=== PATIENT | male | born 1965 | race Caucasian/White ===

== ENCOUNTER 2024-02-13 08:32 | Emergency (ER) | payer OTHER, SELFPAY ==
[2024-02-13 08:36] VITALS: BP 176/78; PULSE 93; RESP 19; TEMP 37.1; O2SAT 99
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
[2024-02-13 09:55] LABS: Abs Immature Grans 0.01 10^3/uL (0.0-0.06); Absolute Basophil Count 0.04 10^3/uL (0.0-0.2); Absolute Eosinophil Count 0.01 10^3/uL (0.0-0.7); Absolute Lymphocyte Count 0.88 10^3/uL (1.2-3.4); Absolute Monocyte Count 0.54 10^3/uL (0.1-0.8); Absolute Neutrophil Count 5.24 10^3/uL (1.2-6.7); Basophils % 0.6; Eosinophils % 0.1; HCT 43.9 % (40.0-50.0); HGB 15.4 g/dL (13.5-17.5); Immature Grans % 0.1; Lymphocytes % 13.1; MCH 30.9 pg (27.0-33.0); MCHC 35.1 % (32.0-36.0); MCV 88 fL (80-95); Neutrophils % 78.1; Platelet Count 219 10^3/uL (130-400); RBC 4.99 10^6/uL (4.36-5.78); RDW 12.6 % (11.8-14.1); WBC 6.72 10^3/uL (4.4-10.8)
[2024-02-13 10:36] LABS: ALT 53 U/L (16-63); AST 33 U/L (15-37); Albumin 4.1 g/dL (3.4-5.0); Alkaline Phosphatase 61 U/L (46-116); BUN 22 mg/dL (7-18); Bilirubin, Total 0.9 mg/dL (0.2-1.0); CREATININE 1.3 mg/dL (0.70-1.30); Calcium 9.3 mg/dL (8.5-10.1); Chloride 105 mmol/L (98-107); Estimated GFR 64.47 (mL/min/1.73m2); Glucose 120 mg/dL (74-106); Potassium 3.5 mmol/L (3.5-5.1); Sodium 143 mmol/L (136-145); TSH (W/Ref FT4) 1.92 uIU/mL (0.36-3.74); Total Protein 7.1 g/dL (6.4-8.2)
[2024-02-13 10:58] LABS: Salicylate < 2.8 mg/dL (<2.8)
[2024-02-13 11:00] LABS: Acetaminophen < 2 ug/mL (10-30)
[2024-02-13 11:04] LABS: *AMPHETAMINES SCREEN URINE Negative (Negative); *BARBITURATES SCREEN URINE Negative (Negative); *BENZODIAZEPINES SCREEN URINE Negative (Negative); Cannabinoids THC Negative (Negative); Cocaine Screen,Urine Negative (Negative); METHADONE URINE SCREEN Negative (Negative); OPIATES URINE SCREEN Negative (Negative)
[2024-02-13 11:06] LABS: Tricyclic Antidepressants Negative (Negative)
--- NOTE | 2024-02-13 13:23 | CMSP_ITS ---
Care Management Safety Plan Status Status: Voluntary Reason for Wait Reason for Wait: Inpatient Admission Safety Plan Safety Plan: VOLUNTARY FOR INPATIENT PSYCHIATRIC STABILIZATION.? Patient is appropriate in all interactions since arriving at [facility]; Pt has demonstrated appropriate coping and communication skills, has articulated his or her needs and concerns and is fully engaged during staff interactions. Safety plan has been established with patient, and care team, to adhere to patient goals, identify restrictions based on behavioral status, address nutrition, and determine allowed personal belongings, tools for hygiene and personal care. Determine level of activity including ambulation, level of supervision, visitors, and determine privileges based on behaviors and level of engagement by pt. SAFETY PLAN: 1. Will remain on suicide precautions, in paper clothes 2. Will remain in Zone B under direct supervision of one-on-one staff at all times provided by [employer]; NATALIA, [employer] EXCHANGE ADMINISTRATOR real estate administrator. 3. May have paper cups, plates, finger foods as well as a cardboard spoon with which to eat meals. 4. Follow [facility] Management of the Admitted Behavioral Health Patient policy. 5. Shower available in Zone B without restriction. 6. Personal belongings-soft items permitted at RN discretion. 7. Visitors-none at this time. 8. Activities: soft cart items approved per RN discretion. 9.? Bathroom available in Zone B without restriction. 10. Phone: limited to [facility] cordless phone at RN discretion. Due to VOLUNTARY status, if patient wishes to leave [facility], staff will contact [facility] Crisis Screener ([phone]) and Accountant Machine Processing ([phone]) as soon as possible. In the event of elopement, notify [facility] Police ([phone]). Patient is currently voluntarily at [facility] and seeking inpatient admission when a bed becomes available. [facility] Frontline Community Service Aide will continue seeking placement. Please contact the Accountant Machine Processing ([phone]) and [facility] Community Service Aide ([phone]) for any needed changes in the Safety Plan. Safety plan has been provided to interdepartmental care team.
--- NOTE | 2024-02-13 13:23 | PDOC.CMSAFE ---
Care Management Safety Plan Status Status: Voluntary Reason for Wait Reason for Wait: Inpatient Admission Safety Plan Safety Plan: VOLUNTARY FOR INPATIENT PSYCHIATRIC STABILIZATION.? Patient is appropriate in all interactions since arriving at [facility]; Pt has demonstrated appropriate coping and communication skills, has articulated his or her needs and concerns and is fully engaged during staff interactions. Safety plan has been established with patient, and care team, to adhere to patient goals, identify restrictions based on behavioral status, address nutrition, and determine allowed personal belongings, tools for hygiene and personal care. Determine level of activity including ambulation, level of supervision, visitors, and determine privileges based on behaviors and level of engagement by pt. SAFETY PLAN: 1. Will remain on suicide precautions, in paper clothes 2. Will remain in Zone B under direct supervision of one-on-one staff at all times provided by [employer]; NATALIA, SHIPPING SUPPORT CLERK bessemer converter operator. 3. May have paper cups, plates, finger foods as well as a cardboard spoon with which to eat meals. 4. Follow [facility] Management of the Admitted Behavioral Health Patient policy. 5. Shower available in Zone B without restriction. 6. Personal belongings-soft items permitted at RN discretion. 7. Visitors-none at this time. 8. Activities: soft cart items approved per RN discretion. 9.? Bathroom available in Zone B without restriction. 10. Phone: limited to [facility] cordless phone at RN discretion. Due to VOLUNTARY status, if patient wishes to leave [facility], staff will contact [facility] Crisis Screener ([phone]) and Air Bag Stripper ([phone]) as soon as possible. In the event of elopement, notify [facility] Police ([phone]). Patient is currently voluntarily at [facility] and seeking inpatient admission when a bed becomes available. [facility] Frontline Grief Counselor will continue seeking placement. Please contact the Air Bag Stripper ([phone]) and [facility] Grief Counselor ([phone]) for any needed changes in the Safety Plan. Safety plan has been provided to interdepartmental care team.
--- NOTE | 2024-02-13 16:27 | ED.PROG_ITS ---
Date of service: 02/13/24 Time of Service: 16:27 Medical Decision Making Patient seeking voluntary placement for depression and SI, has been calm and cooperative since being here and has no new acute complaints. Continue to monitor until safe disposition found Quality:SDOH Health Related Social Needs: No Data to Display Sign Out Sign Out Data: Sign Out Comment: Patient here voluntarily seeking treatment for severe depression and suicidality. Plan for inpatient psychiatric treatment. Patient has been seen by mental health dairy farmworker. Attempting to identify inpatient treatment facility with capacity. Last updated by Gonzalez Toscano MD at 02/13/24 15:18 Discharge Plan Discharge Details Chief Complaint: PsychEval Primary Care Provider: Unknown,Unknown ED Provider: Adan Rivas Home Meds and New Rx's Prescriptions: No Action amlodipine [Norvasc] 10 mg tablet 10 mg PO DAILY lamotrigine [Lamictal] 25 mg tablet 25 mg PO BID lorazepam 0.5 mg tablet 0.5 mg PO QHS Rx Instructions: Can take 1-2 tabs at HS as needed for sleep enalapril maleate 10 mg tablet 10 mg PO DAILY
--- NOTE | 2024-02-14 06:19 | ED.PROG_ITS ---
Date of service: 02/14/24 Time of Service: 06:19 Medical Decision Making 58-year-old gentleman with history of depression. Pending voluntary inpatient psychiatric placement. Has slept comfortably overnight, now eating breakfast and watching the snow. No issues. Quality:[facility] Health Related Social Needs: No Data to Display Sign Out Sign Out Data: Sign Out Comment: Patient here voluntarily seeking treatment for severe depression and suicidality. Plan for inpatient psychiatric treatment. Patient has been seen by mental health sheetmetal worker. Attempting to identify inpatient treatment facility with capacity. Last updated by Gonzalez Toscano MD at 02/13/24 15:18 Sign Out Comment: Patient seeking voluntary placement for depression and SI, no issues during shift. Started lamotrigine yesterday determined did not continue it here by Dr. Toscano Last updated by Adan Rivas MD at 02/13/24 16:30 Discharge Plan Discharge Details Chief Complaint: PsychEval Primary Care Provider: Unknown,Unknown ED Provider: Lyndon Lopez Home Meds and New Rx's Prescriptions: No Action amlodipine [Norvasc] 10 mg tablet 10 mg PO DAILY lamotrigine [Lamictal] 25 mg tablet 25 mg PO BID lorazepam 0.5 mg tablet 0.5 mg PO QHS Rx Instructions: Can take 1-2 tabs at HS as needed for sleep enalapril maleate 10 mg tablet 10 mg PO DAILY
[2024-02-14] MEDS: Enalapril 5 MG TAB 10 MG PO (08:26)
[2024-02-14] MEDS: amLODIPine 10 MG TAB PO (08:26)
[2024-02-14 08:28] VITALS: BP 118/57; PULSE 96; RESP 16; TEMP 36.9; O2SAT 99
--- NOTE | 2024-02-14 09:57 | ED.PROG_ITS ---
Date of service: 02/14/24 Time of Service: 09:57 Medical Decision Making Care signed out by [facility] Sel[facility], discussed ED presentation and course. She will accept the patient in transfer. Will attempt to arrange transportation although weather may potentially delay transfer. Quality:[facility] Health Related Social Needs: No Data to Display Sign Out Sign Out Data: Sign Out Comment: Patient here voluntarily seeking treatment for severe depression and suicidality. Plan for inpatient psychiatric treatment. Patient has been seen by mental health dairy feed worker. Attempting to identify inpatient treatment facility with capacity. Last updated by Gonzalez Toscano MD at 02/13/24 15:18 Sign Out Comment: Patient seeking voluntary placement for depression and SI, no issues during shift. Started lamotrigine yesterday determined did not continue it here by Dr. Toscano Last updated by Adan Rivas MD at 02/13/24 16:30 Sign Out Comment: pending Voluntary placement for depression, SI no issues overnight. Last updated by Lyndon Lopez MD at 02/14/24 06:21 Discharge Plan Disposition Patient Disposition: Psychiatric Hospital/Unit Specific Psychiatric Facility: [facility] Condition: Serious Discharge Details Clinical Impression: Suicidal ideation, Depression Primary Care Provider: Unknown,Unknown ED Provider: Gonzalez Toscano Home Meds and New Rx's Prescriptions: No Action amlodipine [Norvasc] 10 mg tablet 10 mg PO DAILY lamotrigine [Lamictal] 25 mg tablet 25 mg PO BID lorazepam 0.5 mg tablet 0.5 mg PO QHS Rx Instructions: Can take 1-2 tabs at HS as needed for sleep enalapril maleate 10 mg tablet 10 mg PO DAILY Discharge Data Discharge Date/Time-TO BE ENTERED AT DEPARTURE: 02/14/24 13:02
== END 2024-02-14 13:02 ==
PROVIDERS: Emergency Provider Student in an Organized Health Care Education/Training Program
DX: R45.851 Suicidal ideations (principal); F32.A Depression, unspecified; I10 Essential (primary) hypertension
CPT/HCPCS: 00123; 36415; 80053; 80307; 99285; 80329; 84443; 85025